=== PATIENT | female | born 2000 | race African-American/Black ===

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

== ENCOUNTER 2019-01-02 15:10 | Emergency (ER) | payer OTHER ==
[~2019-01-02] VITALS: Ht 172.7 cm; Wt 77.1 kg
[2019-01-02 15:29] VITALS: BP 133/79
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
--- NOTE | 2019-01-02 16:05 | NUR ---
xray at bedside
== END 2019-01-02 18:24 | disposition home or self-care (01) ==
LOC: ER 15:13
DX: S80.02XA Contusion of left knee, initial encounter (principal); M25.462 Effusion, left knee; J45.909 Unspecified asthma, uncomplicated; V29.9XXA Motorcycle rider (driver) (passenger) injured in unspecified traffic accident, initial encounter; Y93.89 Activity, other specified; Y92.89 Other specified places as the place of occurrence of the external cause; Y99.8 Other external cause status
CPT/HCPCS: 73564-TC; 73590-TC; 73700-TC